=== PATIENT | female | born 1995 | race Caucasian/White ===

== ENCOUNTER 2019-02-09 10:12 | Observation (INO) | payer SELFPAY ==
[2019-02-09] MEDS ORDERED: Morphine 4 MG/ML VIAL ONE ×2 (10:29→15:06)
--- NOTE | 2019-02-09 12:12 | ULT ---
ULTRASOUND PELVIC ULTRASOUND TRANSVAGINAL DOPPLER DUPLEX: DATE: 02/09/2019 HISTORY: 23-year-old female with acute suprapubic pelvic pain. Intrapelvic hematoma found on CT. TECHNIQUE: Transabdominal transducer and endovaginal transducer used to visualize intrapelvic contents with oconnell scale, color-flow, and spectral analysis. FINDINGS: Uterus: 8.5 x 5 x 6.5 cm. Endometrial stripe: Poorly visualized and difficult to measure. In the anterior suprapubic aspect of the pelvic cavity directly superior to the urinary bladder, ther e is a 12 x 5.5 x 5.5 cm pocket of anechoic free fluid. Filling the cul-de-sac of Claudio, there is a large solid mass measuring approximate 6.5 x 4 x 5.5 cm , that corresponds to the 7.5 x 4.5 x 5.5 cm hyperdense mass found on today's noncontrast CT. On ultrasound, this mass is heterogeneously intermediate-low echogenicity. Tiny amount of blood flow is demonstrated at 1 order of this, but the majority of the mass does not have blood flow. It is surrounded by a small amount of anechoic free fluid. A normal left ovary is not identified. The right ovary is not visualized. IMPRESSION: 1) large solid-appearing mass in the cul-de-sac of Claudio. This could be an ovary enlarged due to ov fox torsion. The other possibilities include hematoma and ovarian neoplasm. 2) moderate amount of anechoic free fluid in the superior anterior aspect of the pelvic cavity. 3) strongly recommend SYSTEMS SOFTWARE DEVELOPER consultation.
[2019-02-09 12:19] LABS: BHCG - Serum Negative (NEGATIVE); Pregs Control Background? CLEAR/WHITE (CLR/WHITE); Pregs Control Bar Appear? YES (CONTROL BAR)
--- NOTE | 2019-02-09 13:33 | HP ---
TIME OF SERVICE: 1245 hours. REASON FOR ADMISSION: Pelvic pain with possible hemorrhagic ovarian cyst versus ovarian torsion versus hematoma and cul-de-sac of Claudio. HISTORY OF PRESENT ILLNESS: Ms. Vanessa is a 23-year-old, 1, para 1, approximately 3 weeks status post LMP, who presents with acute onset of right lower quadrant and midline pelvic pain. She reported nausea, no vomiting, and pelvic pressure with it. She denies recent sexual activity. She denies . She was seen in [facility] and CT scan was read as a pelvic hematoma, was transferred here. Ultrasound reveals what appears to be possibly an organized clot versus an adnexal mass and a posterior cul-de-sac, uncertain to say which side. Ovaries are not well characterized. Uterus is empty, small and within normal limits. There is a small amount of free fluid noted anteriorly as well. SORTER LAUNDRY ARTICLES HISTORY: x1. Denies STD history. PAST MEDICAL HISTORY: Denies. PAST SURGICAL HISTORY: Denies. ALLERGIES: DENIES. MEDICATIONS: None. SOCIAL HISTORY: IV drug abuse denied. Alcohol abuse denied. PHYSICAL EXAMINATION: VITAL SIGNS: The patient's pulse was 82, respirations 18, blood pressure was 118/72. This was status post aid of morphine at [facility]. LUNGS: Clear to auscultation bilaterally. HEART: Regular rhythm. ABDOMEN: She had guarding greater right than left in the lower quadrants with mild rebound on the right. No rebound or guarding noted in the upper quadrants. PELVIC: Deferred. EXTREMITIES: Without clubbing, cyanosis, or edema. LABORATORY DATA: Hematocrit was 34.2% with a 10.9% white count, normal platelet count at 229. Chemistry was unremarkable except for mild hypokalemia in [facility]. Urine test was negative at both [facility] and [facility]. Radiology reports studies as noted. In general, my review of the ultrasound images reveal a poorly characterized uterus and adnexa, but a definite area of organization in the posterior cul-de-sac that is hard to characterize with images as provided. Differential includes organized clot versus enlarged adnexa with possible torsion. IMPRESSION: Acute onset pelvic pain with posterior pelvic abnormality consistent with hemorrhage. PLAN: Discussed with the patient options. The patient was offered admission for expectant management, repeat labs and ultrasound and possible procession with surgery tomorrow versus proceeding with surgery today. The patient desires to go ahead and proceed with surgery today. She has been n.p.o. We will proceed with diagnostic laparoscopy and possible removal of adnexa. Anticipate most likely process will be laparoscopy with evacuation of clot and coagulation of any bleeding on a probable ruptured ovarian cyst. We will administer appropriate antibiotic and DVT prophylaxis. After discussing with operating room appears approximately 2 to 4 hours until that process will occur. Job ID: [id number]
[2019-02-09] MEDS ORDERED: Ondansetron PF 4 MG/2 ML Vial ONE (17:46)
--- NOTE | 2019-02-09 17:54 | PRG ---
DATE OF SERVICE: 02/09/2019 TIME OF SERVICE: 1715 hours. SUBJECTIVE: Ms. Vanessa continues to await in the emergency room for availability in the operating room. Several cases are in front of her in the operating room at this time and uncertain as to when surgery would be able to progress. The patient's vitals remain stable with pulse in the 70s, blood pressure 110/72, and afebrile. The patient has received 4 of morphine x1. She reports that her pain maxed out at a 7. She states that she does feel somewhat better than earlier. She does note that the pain seems to have moved up as she has laid down consistent with diaphragmatic irritation. Abdominal exam is unchanged to somewhat less remarkable with her discomfort. The patient is very hungry. The patient and I and her had a discussion about our options. Considering the indefinite wait for operating room in the patient's stability and nonprogressive exam, I think it is reasonable to let her eat at this point in time, admit her to the floor, change to clear liquid diet at midnight, and reassess with hematocrit, and ultrasound evaluation in the a.m. If progression is noted, then OB hospitalist on Sunday could proceed with surgical management as an add-on during the day with full OR staffing on Sunday. The patient and her are agreeable with this. Obviously, if the patient does develop signs or symptoms of worsening status, could proceed with surgery on an emergent basis overnight. Job ID: [id number]
[2019-02-09] MEDS ORDERED: Zolpidem Tartrate 5 MG TAB PO PRN (18:48)
[2019-02-09] MEDS ORDERED: Ondansetron ODT 4 MG TAB PO PRN (18:48)
[2019-02-09] MEDS ORDERED: HYDROcodone/Acetaminophen 5/325 mg Tablet PO PRN (18:48)
[2019-02-09] MEDS ORDERED: Ondansetron PF 4 MG/2 ML Vial IVP PRN (18:48)
[2019-02-09] MEDS ORDERED: Sodium Chloride 0.9% 10 ML ONE (19:52)
[2019-02-09] MEDS: Sodium Chloride 0.9% 1,000 ML IV SCH (19:57)
[2019-02-09] MEDS: HYDROcodone/Acetaminophen 5/325 mg Tablet PO PRN (20:12)
[2019-02-09 21:09] VITALS: BMI 22.9
[2019-02-09] MEDS: Famotidine 20 MG TAB PO SCH (21:19)
[2019-02-10] MEDS: Sodium Chloride 0.9% 1,000 ML IV SCH ×2 (04:05→12:41)
[2019-02-10 05:46] LABS: #Basophils 0.1 thou/uL (0.0-0.2); #Eosinphils 0.2 thou/uL (0.0-0.7); #Lymphocytes 2.5 thou/uL (1.20-3.40); #Neutrophils 2.6 thou/uL (1.40-6.50); %Eosinophils 3.6 % (0.0-10.0); %Lymphocytes 46.9 % (21.0-51.0); %Monocytes 0.8 % (0.0-10.0); %Neutrophils 47.7 % (42.0-75.0); Hemoglobin 10.2 g/dL (12.0-16.0); Mean Corpuscular HGB CONC 33.8 g/dL (32.0-36.0); Mean Corpuscular Hemoglobin 31.4 pg (27.0-31.0); Mean Corpuscular Volume 92.8 fL (78.0-98.0); Platelet Count 138 thou/uL (130-400); RBC Distribution Width 10.9 % (11.5-14.5); Red Blood Cell (RBC) Count 3.26 mill/uL (4.20-5.40); White Blood Cell (WBC) Count 5.4 thou/uL (4.8-10.8)
--- NOTE | 2019-02-10 07:03 | PRG ---
DATE OF SERVICE: 02/10/2019 TIME OF SERVICE: 0645 hours. SUBJECTIVE: Ms. Vanessa is resting comfortably this morning. She states that her pain is somewhat better than yesterday. More than anything has moved in location and become more mid epigastric, then pelvic to right lower quadrant. LABORATORY: Reveals her hematocrit is decreased from 34% to 30% today, otherwise unremarkable. OBJECTIVE: VITAL SIGNS: Temperature 98.4, pulse 64, blood pressure 95/46, and respirations 16. HEENT: Within normal limits. LUNGS: Clear to auscultation bilaterally. HEART: Regular rate and rhythm. ABDOMEN: Nondistended. Bowel sounds in all 4 quadrants. She has discomfort and mild guarding on exam periumbilical to left mid quadrants. Right lower quadrant tenderness is significantly decreased over yesterday. There is no rebound noted and again no distention. PELVIC: Deferred. IMPRESSION: Status post intraperitoneal hemorrhage likely secondary to hemorrhagic corpus luteum cyst. Ultrasound did not reveal any definitive ovarian mass upon admission and exam and pain level is low suspicion for torsion. PLAN: 1. Repeat ultrasound today. 2. Maintain clear liquids until ultrasound results reviewed by OB hospitalist taking over at 0800 hours. 3. Consideration for possible discharge home versus laparoscopic exploration later in the day. Care plan will be discussed with Dr. Spears, at hand off at 0800 hours. Job ID: [id number]
[2019-02-10] MEDS: HYDROcodone/Acetaminophen 5/325 mg Tablet PO PRN (08:02)
[2019-02-10] MEDS: Famotidine 20 MG TAB PO SCH (08:02)
--- NOTE | 2019-02-10 11:01 | ULT ---
Pelvic ultrasound: 02/10/2019 COMPARISON: 02/09/2019 HISTORY: Reevaluate pelvic hematoma/mass TECHNIQUE: Multiplanar grayscale sonographic imaging of the pelvis obtained with transabdominal and e ndovaginal imaging. The adnexal regions are assessed with color flow and spectral analysis FINDINGS: Uterus measures 8.7 x 4.8 x 5.4 cm. Endometrial stripe is 6 mm, within normal limits. The r ight ovary could not be visualized on this exam. There is questionable visualization of the left ovary measuring 2.7 x 2.5 x 2.4 cm. What appears to r epresent a left ovary demonstrates normal blood flow. There is significant free fluid within the posterior superior aspect of the pelvis superior to the uterine body and fundus. Inferior to the uter ine fundus filling the pelvic cul-de-sac and extending into the left hemipelvis is a large area of complex heterogeneous decreased echogenicity abutting the left ovary measuring up to 8.4 x 2.6 x 6.5 cm. This could represent a large nonspecific hematoma or less likely, a mass. Correlation with quantitative beta-hCG is advised to exclude the possibility of ruptured ectopic . There has been no significant interval change. IMPRESSION: Significant free fluid in the pelvis with a large area of complex decreased echogenicity within the inferior pelvic cul-de-sac and left hemipelvis, favored to represent hematoma. Etiology is uncertain. Correlation with quantitative beta-hCG is advised. Pelvic MRI may be beneficial to eval uate this lesion and its association with the left ovary.
[2019-02-10] MEDS ORDERED: Ketorolac Tromethamine 30 MG/ML VIAL ONE (11:16)
[2019-02-10] MEDS ORDERED: Rocuronium Bromide 10 MG/ML (10ML VIAL) ONE (11:16)
[2019-02-10] MEDS ORDERED: Glycopyrrolate 0.2 MG/ML 5 ML SYRINGE ONE (11:16)
[2019-02-10] MEDS ORDERED: PROPOFOL 200 MG/20 ML VIAL ONE (11:16)
[2019-02-10] MEDS ORDERED: Lidocaine 1% PF 5 ML VIAL ONE (11:16)
[2019-02-10] MEDS ORDERED: Dexamethasone 20 MG/5 ML VIAL ONE (11:16)
[2019-02-10] MEDS ORDERED: Ondansetron PF 4 MG/2 ML Vial ONE (11:16)
[2019-02-10] MEDS ORDERED: diphenhydrAMINE 50 MG/ML VIAL IVP PRN (12:03)
[2019-02-10] MEDS ORDERED: Metoclopramide HCl 10 MG/2 ML VIAL IVP PRN (12:04)
[2019-02-10] MEDS ORDERED: Bupivacaine 0.25% HCL 30 ML VIAL ONE (12:05)
[2019-02-10] MEDS ORDERED: Bupivacaine HCl 0.5%/Epinephrine 1:200,000/PF 30 ml Vial ONE (12:05)
[2019-02-10] MEDS ORDERED: Methylene Blue 50 MG/10 ML AMPUL ONE (12:06)
[2019-02-10] MEDS ORDERED: Midazolam HCl 2 mg/2 ml Vial ONE (14:40)
[2019-02-10] MEDS ORDERED: Fentanyl 100 MCG/2 ML VIAL ONE ×2 (14:40→17:05)
[2019-02-10] MEDS ORDERED: Promethazine HCl 25 MG/ML VIAL IM PRN (16:37)
[2019-02-10] MEDS ORDERED: Ondansetron HCl/PF 4 MG/2 ML Vial IVP PRN (16:37)
[2019-02-10] MEDS ORDERED: HYDROmorphone 2 MG/ML VIAL SLOW IVP PRN (16:37)
[2019-02-10] MEDS ORDERED: PACU-Morphine 4MG/ML VIAL SLOW IVP PRN (16:37)
[2019-02-10] MEDS ORDERED: Promethazine HCl 25 MG/ML VIAL SLOW IVP PRN (16:37)
[2019-02-10 17:51] VITALS: TEMP 98.3
[2019-02-10 18:02] VITALS: BP 100/57
--- NOTE | 2019-02-11 02:46 | OP ---
DATE OF PROCEDURE: 02/10/2019 PREOPERATIVE DIAGNOSIS: 1. Acute pelvic pain. 2. Pelvic mass. POSTOPERATIVE DIAGNOSIS: 1. Hemorrhagic corpus luteum. 2. Pelvic hematoma. PROCEDURES PERFORMED: Diagnostic laparoscopy with evacuation of hematoma. ANESTHESIA: General. ESTIMATED BLOOD LOSS: 200 mL with about 20 mL of intraoperative bleeding. COMPLICATIONS: None. COUNTS: Correct. CONDITION: Stable to recovery room. SPECIMENS: None. DESCRIPTION OF PROCEDURE: The patient is a 23-year-old female, presenting with acute abdominal pain and a suspected hemorrhagic cyst. After counseling, the patient has requested surgical intervention. Written informed consent was provided. The patient expressed understanding of the risks and benefits of the procedure including the risk of bleeding, infection, damage to bowel or bladder or blood vessels, possible loss of tube and ovary. After expressing understanding and providing written consent, the patient was taken to the operating room, where she was placed under general anesthesia without difficulty and placed [id number]-cane stirrups. She was prepared and draped in normal sterile fashion. Attention was placed vaginally, where with aid of an operative speculum, the cervix was identified, grasped with a single-tooth tenaculum, and a uterine manipulator was then inserted to the cervical os and attention was then placed abdominally, where a 5 mm skin incision was placed in the base of the umbilicus. A Veress needle was introduced into the abdomen, inflating the abdominal cavity to 15 mmHg of CO2 gas. A 5 mm trocar was then introduced into the umbilical incision. Proper placement was confirmed by laparoscope. A second 5 mm port was placed suprapubically. Upon entry into the abdomen, it was immediately noted the patient had a hemoperitoneum of a small degree. This area was evacuated out thoroughly and irrigated. The left ovary appeared to have a corpus luteum that was likely the site of her bleeding. There appeared to be a disruption at one of the vessels that has since became hemostatic. The cyst on the left ovary was punctured with laparoscopic [place]'s, noted to have some bleeding, but not a significant amount of fluid came out. The bleeding was made hemostatic with monopolar energy. The abdomen was then irrigated again and excess fluid was removed. At this point in time, procedure was completed with evacuation of hematoma and the abdomen was deflated and the ports and trocars were then removed under direct visualization. The skin was closed with 4-0 Monocryl in a usual fashion. 0.5% Marcaine with epinephrine was used for local anesthetic. Attention was placed vaginally, where the single-tooth tenaculum and the uterine manipulator were then removed and inspection of the cervix showed good hemostasis. The patient was taken out of lithotomy position, extubated, and taken to recovery room in stable condition. Of note, the patient was transferred back to the floor and from there discharged to home as the patient was tolerating p.o., voiding on her own, having good pain control. She has been counseled to follow up with HAND OUTSIDE CUTTER in 2 weeks for postoperative care. The patient is from out of town and reports that she will attempt to come back on Sunday for this in 2 weeks. Job ID: [id number]
== END 2019-02-10 19:05 | disposition home or self-care (01) ==
LOC: ERS 10:12 → 3SE 17:21
PROVIDERS: ADMIT Obstetrics & Gynecology; ATTEND Obstetrics & Gynecology
PROC: 0U914ZZ Drainage of Left Ovary, Percutaneous Endoscopic Approach (ICD-10-PCS; principal; 2019-02-10)
DX: N83.12 Corpus luteum cyst of left ovary (principal); K66.1 Hemoperitoneum
CPT/HCPCS: 36415; 76856; 84703; 85025; 86850; 86900; 86901; 96361; 96374; 96375; 96376; G0378; J0670; J1100; J1200; J1885; J2001; J2250; J2270; J2405; J2704; J2765; J3010; Q9968; S0020